=== PATIENT | female | born 1990 | race Two or more races ===

== ENCOUNTER 2018-12-05 17:20 | Emergency (ER) | payer MEDICAID ==
[~2018-12-05] VITALS: Ht 149.9 cm; Wt 113.4 kg
--- NOTE | 2018-12-05 17:47 | Emergency Room Report ---
History of Present Illness General Chief Complaint: Lower Extremity Injury Source: Patient Present Illness HPI Patient twisted her right ankle. This happened before coming in. She heard 3 pops. She's not taking any medication. There is swelling and hurts more on the lateral side. She's unable to weight-bear at this time. There is no numbness. Patient denies any medical problems. Allergies: Coded Allergies: No Known Allergies (Unverified , 12/05/18) Patient History Past Medical History: see triage record Social History Narrative Works in [employer] and with vegetables Last Menstrual Period: 11/18/18 Reviewed Nursing Documentation: PMH: Agreed; PSxH: Agreed Nursing Documentation-PMH Past Medical History: No Stated History Review of Systems Constitutional: Reports: see HPI Musculoskeletal: Reports: see HPI Skin: Reports: see HPI Neurological: Reports: see HPI Hematologic/Lymphatic: Reports: see HPI Physical Exam Vital Signs Date Time Temp Pulse Resp B/P (MAP) Pulse Ox O2 Delivery O2 Flow Rate FiO2 12/05/18 17:33 97.9 92 19 102/64 (77) 99 Room Air General Appearance: well appearing, no apparent distress, GCS 15 Head: normocephalic, atraumatic ENT: hearing grossly normal, normal voice Neck: full range of motion, supple Respiratory: no respiratory distress, speaking full sentences Cardiovascular #2: 2+ dorsalis pedis (R) - Good capillary refill Musculoskeletal: no calf tenderness, swelling, other - Point tenderness lateral malleolus ligaments with minimal laxity and minimal fifth metatarsal tenderness. Knee without tenderness. Neurologic: alert, oriented x3, motor strength/tone normal, sensory intact - Distal sensory intact, normal gait Psychiatric: mood/affect normal Skin: no rash Medical Decision Making Diagnostic Impression: Primary Impression: Right ankle sprain ER Course Patient presents with right ankle injury. Differential includes fracture, sprain amongst others. Based on [place] ankle rules x-rays indicated. Also patient will be given Motrin. Other X-Ray Diagnostic Results Other X-Ray Diagnostic Results : X-Ray ordered: r ankle # of Views/Limited Vs Complete: 3 View Indication: Other EP Interpretation: Yes Interpretation: no dislocation, no fractures, other - STS Impression: Other Electronically Signed by: Electronically signed by Moses Jernigan MD Status: improved Disposition: HOME, SELF-CARE Condition: Improved Scripts No Active Prescriptions or Reported Meds Moses Jernigan MD Dec 05, 2018 17:47
[2018-12-05 18:30] VITALS: BP 108/66
[2018-12-05] MEDS ORDERED: IBUPROFEN600 MG ORAL (18:33)
[2018-12-05] MEDS ORDERED: TRAMADOL HCL50 MG ORAL (18:33)
--- NOTE | 2018-12-05 18:58 | NUR ---
ED Nurse Note: vic perkins done pt ankle carlos wraped pt given crutches and teaching on crutch gait. pt alos provided with aci and script verbalized understanding ambulated out of er with family member with steady crutch gait.
== END 2018-12-05 18:40 | disposition home or self-care (01) ==
LOC: EMR 18:10
DX: S93.401A Sprain of unspecified ligament of right ankle, initial encounter (principal); X50.1XXA Overexertion from prolonged static or awkward postures, initial encounter; Y92.9 Unspecified place or not applicable
CPT/HCPCS: 99283